=== PATIENT | female | born 1965 | race African-American/Black ===

== ENCOUNTER 2020-12-02 21:58 | Emergency (ER) | payer BC ==
[~2020-12-02] VITALS: Ht 170.2 cm; Wt 108.9 kg
[2020-12-02 22:03] VITALS: BP 146/93
[2020-12-02] MEDS ORDERED: LOSARTAN POTAS100 MG PO (22:09)
[2020-12-02] MEDS ORDERED: AZITHROMYCIN 2250 MG PO (22:09)
[2020-12-02] MEDS ORDERED: LIPITOR10 MG PO (22:10)
--- NOTE | 2020-12-03 04:33 | NUR ---
LAB CALED WITH POSITIVE COIVD RESULT WILL PASS ON TO DAY SHIFT TO CALL RESULT TO PATIENT.
== END 2020-12-02 22:35 | disposition home or self-care (01) ==
LOC: ER 21:58
PROVIDERS: Emergency Medicine
DX: U07.1 COVID-19 (principal); R51.9 Headache, unspecified; I10 Essential (primary) hypertension; E78.00 Pure hypercholesterolemia, unspecified; Z79.891 Long term (current) use of opiate analgesic; Z79.899 Other long term (current) drug therapy; Z88.0 Allergy status to penicillin